=== PATIENT | male | born 1930 | race Caucasian/White ===

== ENCOUNTER 2017-01-26 09:38 | Emergency (ER) | payer MEDICARE, OTHER ==
[~2017-01-26] VITALS: Ht 182.9 cm; Wt 73.9 kg
--- NOTE | 2017-01-26 09:57 | EKG ---
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
--- NOTE | 2017-01-26 10:14 | ED.ADGEN ---
Past Medical History Past Medical History: High Cholesterol, Hypertension Adult General Chief Complaint Chief Complaint: WEIGHT LOSS HPI HPI Patient is a 86 year old male who presents with concern for weight loss. Pt reports this morning he took a shower and he got out and looked at his exposed body M year and noted that he looks much thinner than he had the last time he looked. Patient believes he's had a 20 pound weight loss in the last year, unintentional. He has been eating. He denies any nausea or vomiting, no chest pain or shortness of breath. He did have an episode of shortness of breath yesterday, family attributed it to the patient becoming very anxious when the primary caregiver was going to leave the house for an air and. The patient was able to calm within 5 minutes and the shortness of breath resolved. Family believes there is some anxiety contributing to the patient's wanting to come to the hospital, as his 12 weeks ago. Patient has a primary care appointment tomorrow with PCP Dr. Chowdary. Denies known cardiac disease, does not believe that he takes a beta ana lilia. He is on Coumadin, unknown reason. Records show a history of A. fib Review of Systems Review of Systems Constitutional: Denies fever or chills. [] Eyes: Denies change in visual acuity. [] HENT: Denies nasal congestion, reports phlegm in throat difficult to clear Respiratory: Reports mild cough, denies current shortness of breath. [] Cardiovascular: Denies chest pain or edema. [] GI: Denies abdominal pain, nausea, vomiting, bloody stools or diarrhea. [] : Denies dysuria. [] Musculoskeletal: Denies back pain or joint pain. [] Integument: Denies rash., Reports a left leg abscess that self drained Neurologic: Denies headache, focal weakness or sensory changes. [] Allergies Allergies Allergies Coded Allergies Type Severity Reaction Last Updated Verified No Known Drug Allergies 01/26/17 No Physical Exam Physical Exam Constitutional: Well developed, well nourished, no acute distress, non-toxic appearance. [Talks in full sentences HENT: Normocephalic, atraumatic, bilateral external ears normal, oropharynx moist, no oral exudates, nose normal, mucus in back of throat, mild erythema, no edema Eyes: enucleated left eye, R pupil reactive, EOMI, conjunctiva normal, no discharge. [] Neck: Normal range of motion, no tenderness, supple, no stridor. [] Cardiovascular:Heart rate bradycardic with regular rhythm Lungs & Thorax: Bilateral breath sounds clear to auscultation, no wheeze or crackles Abdomen: soft, no tenderness, no masses, no pulsatile masses. [] Skin: Warm, dry, abnormal R upper back mole, left lateral thigh small wound that has drained and nontender, no surrounding erythema. Back: No tenderness, no CVA tenderness. [] Extremities: No tenderness, no cyanosis, no clubbing, ROM intact, no edema. [] Neurologic: Alert and oriented X 3, normal motor function, normal sensory function, no focal deficits noted. [] Psychologic: anxious at times when clearing his phlegm] Current Patient Data Vital Signs Vital Signs Date Time Temp Pulse Resp B/P Pulse Ox O2 Delivery O2 Flow Rate FiO2 01/26/17 09:40 98.3 58 18 140/62 100 Room Air 98.3 Lab Values Laboratory Tests Test 01/26/17 09:50 White Blood Count 9.3x10^3/uL (4.0-11.0) Red Blood Count 5.58x10^6/uL (4.30-5.70) Hemoglobin 17.0g/dL (13.0-17.5) Hematocrit 49.6% (39.0-53.0) Mean Corpuscular Volume 89fL (79-100) Mean Corpuscular Hemoglobin 30pg (25-35) Mean Corpuscular Hemoglobin Concent 34g/dL (31-37) Red Cell Distribution Width 15.1% (11.5-14.5) H Platelet Count 179x10^3/uL (140-400) Neutrophils (%) (Auto) 68% (31-73) Lymphocytes (%) (Auto) 18% (24-48) L Monocytes (%) (Auto) 9% (0-9) Eosinophils (%) (Auto) 4% (0-3) H Basophils (%) (Auto) 1% (0-3) Neutrophils # (Auto) 6.3x10^3uL (1.8-7.7) Lymphocytes # (Auto) 1.7x10^3/uL (1.0-4.8) Monocytes # (Auto) 0.8x10^3/uL (0.0-1.1) Eosinophils # (Auto) 0.4x10^3/uL (0.0-0.7) Basophils # (Auto) 0.1x10^3/uL (0.0-0.2) Prothrombin Time 23.3SEC (11.7-14.0) H Prothrombin Time INR 2.2 (0.8-1.1) H Sodium Level 140mmol/L (136-145) Potassium Level 4.1mmol/L (3.5-5.1) Chloride Level 105mmol/L (98-107) Carbon Dioxide Level 26mmol/L (21-32) Anion Gap 9 (6-14) Blood Urea Nitrogen 22mg/dL (8-26) Creatinine 1.1mg/dL (0.7-1.3) Estimated GFR (Cockcroft-Gault) 63.6 BUN/Creatinine Ratio 20 (6-20) Glucose Level 94mg/dL (70-99) Calcium Level 9.3mg/dL (8.5-10.1) Total Bilirubin 1.0mg/dL (0.2-1.0) Aspartate Amino Transferase (AST) 16U/L (15-37) Alanine Aminotransferase (ALT) 21U/L (16-63) Alkaline Phosphatase 78U/L (46-116) Troponin I Quantitative < 0.017ng/mL (0.000-0.055) Total Protein 7.6g/dL (6.4-8.2) Albumin 3.7g/dL (3.4-5.0) Albumin/Globulin Ratio 0.9 (1.0-1.7) L Laboratory Tests 01/26/17 09:50 Laboratory Tests 01/26/17 09:50 EKG EKG 50 bpm, bradycardiac appears A. fib, no ST elevation appreciated, slight ST depression in lead V3 and V4 with T-wave inversion in V3 and aVF, interpreted by sc Radiology/Procedures Radiology/Procedures chest x-ray:Indication shortness of air. Bradycardia. Cough. PA and lateral views of the chest were obtained and are compared to an examination 11/26/2012. Heart size is at the upper limits of normal but unchanged. There is no congestive heart failure. Acute parenchymal infiltrate is not seen. Significant pleural fluid is not seen and there is no pneumothorax. A significant change compared to the previous exam is not seen. IMPRESSION: No acute finding apparent in the chest Course & Med Decision Making Course & Med Decision Making Pertinent Labs and Imaging studies reviewed. (See chart for details) Patient initially does not have any significant complaints. Patient does have possible weight loss, bradycardia, abnormal mold. Patient has follow-up with primary care physician the following day. Evaluation the ER did not show any acute abnormalities. Plan to discharge the patient, and he started complaining of the phlegm that he get stuck in his throat. His O2 sats were 99-100% the entire time he was in the ER. I suggested he performed nasal rinses at home, keep follow-up with primary care physician. Caregiver agreed and plans to take him to his appointment tomorrow. I also talked with Dr. Chowdary regarding this patient. Diagnosis: viral sinusitis, weight loss, bradycardia Dragon Disclaimer Dragon Disclaimer This electronic medical record was generated, in whole or in part, using a voice recognition dictation system. SHAMIR TURNER MD January 26, 2017 10:14
[2017-01-26 10:23] LABS: BASO # 0.1 x10^3/uL (0.0-0.2); BASO % 1 % (0-3); EOS % 4 % (0-3); HEMATOCRIT 49.6 % (39.0-53.0); LYMPH # 1.7 x10^3/uL (1.0-4.8); LYMPH % 18 % (24-48); MEAN CORPUSCULAR HEMOGLOBIN 30 pg (25-35); MEAN CORPUSCULAR HGB CONC 34 g/dL (31-37); MEAN CORPUSCULAR VOLUME 89 fL (79-100); MONO % 9 % (0-9); NEUT % 68 % (31-73); PLATELET COUNT 179 x10^3/uL (140-400); RED BLOOD COUNT 5.58 x10^6/uL (4.30-5.70); RED CELL DISTRIBUTION WIDTH 15.1 % (11.5-14.5); WHITE BLOOD COUNT 9.3 x10^3/uL (4.0-11.0)
[2017-01-26 10:31] LABS: CALCIUM 9.3 mg/dL (8.5-10.1); CREATININE 1.1 mg/dL (0.7-1.3); GFR 63.6; POTASSIUM 4.1 mmol/L (3.5-5.1)
[2017-01-26 10:37] LABS: ALBUMIN 3.7 g/dL (3.4-5.0); ALBUMIN/GLOBULIN RATIO 0.9 (1.0-1.7); TOTAL PROTEIN 7.6 g/dL (6.4-8.2)
--- NOTE | 2017-01-26 10:40 | RAD ---
Indication shortness of air. Bradycardia. Cough. PA and lateral views of the chest were obtained and are compared to an examination 11/26/2012. Heart size is at the upper limits of normal but unchanged. There is no congestive heart failure. Acute parenchymal infiltrate is not seen. Significant pleural fluid is not seen and there is no pneumothorax. A significant change compared to the previous exam is not seen. IMPRESSION: No acute finding apparent in the chest
[2017-01-26 10:41] LABS: INR 2.2 (0.8-1.1); PROTHROMBIN TIME PATIENT 23.3 SEC (11.7-14.0)
[2017-01-26 11:30] VITALS: BP 139/70
== END 2017-01-26 11:30 | disposition home or self-care (01) ==
LOC: ER 09:38
DX: J32.8 Other chronic sinusitis (principal); B97.89 Other viral agents as the cause of diseases classified elsewhere; R63.4 Abnormal weight loss; R00.1 Bradycardia, unspecified; I10 Essential (primary) hypertension; E78.00 Pure hypercholesterolemia, unspecified; I48.91 Unspecified atrial fibrillation; Z79.01 Long term (current) use of anticoagulants
CPT/HCPCS: 36415; 71020; 80053; 84484; 85027; 85610; 93005; 99285-25

== ENCOUNTER 2017-02-13 13:58 | Emergency (ER) | payer MEDICARE, OTHER ==
[~2017-02-13] VITALS: Ht 180.3 cm; Wt 73.9 kg
[2017-02-13 14:17] LABS: BILIRUBIN,URINE NEGATIVE (NEG); GLUCOSE,URINE NEGATIVE (NEG); NITRITE,URINE NEGATIVE (NEG); PH,URINE 7.5; PROTEIN,URINE NEGATIVE (NEG-TRACE)
[2017-02-13] MEDS ORDERED: SIMV10TA3 PO (14:19)
[2017-02-13] MEDS ORDERED: ALLO300T PO (14:19)
[2017-02-13] MEDS ORDERED: WARF5TAB7 PO (14:19)
[2017-02-13] MEDS ORDERED: LISI10TA2 PO (14:19)
[2017-02-13] MEDS ORDERED: LEVO75TA5 PO (14:20)
[2017-02-13 14:28] LABS: BACTERIA,URINE 0 /HPF (0-FEW); RBC,URINE OCC /HPF (0-2)
[2017-02-13 14:56] LABS: BASO # 0.1 x10^3/uL (0.0-0.2); BASO % 1 % (0-3); EOS % 2 % (0-3); HEMATOCRIT 53.8 % (39.0-53.0); HEMOGLOBIN 17.7 g/dL (13.0-17.5); LYMPH % 10 % (24-48); MEAN CORPUSCULAR HEMOGLOBIN 31 pg (25-35); MEAN CORPUSCULAR HGB CONC 33 g/dL (31-37); MEAN CORPUSCULAR VOLUME 93 fL (79-100); MONO % 8 % (0-9); NEUT % 80 % (31-73); PLATELET COUNT 140 x10^3/uL (140-400); RED BLOOD COUNT 5.79 x10^6/uL (4.30-5.70); RED CELL DISTRIBUTION WIDTH 16.6 % (11.5-14.5); WHITE BLOOD COUNT 10.9 x10^3/uL (4.0-11.0)
[2017-02-13] MEDS ORDERED: TAMS0.4C97 PO (15:02)
[2017-02-13] MEDS ORDERED: LEVO500T38 PO (15:02)
--- NOTE | 2017-02-13 15:03 | PHYS DOC ---
Past Medical History Past Medical History: High Cholesterol, Hypertension, Hypothyroid Additional Past Medical Histor: GOUT Past Surgical History: Hip Replacement Alcohol Use: None Drug Use: None Adult General Chief Complaint Chief Complaint: URINARY FREQUENCY HPI HPI Patient is a 86 year old male presenting to the emergency department for evaluation of more frequent urination since yesterday. He says that he is urinating every hour and that sometimes it is very difficult to start his stream in that he is urinating less. He says it is somewhat painful to urinate with some discomfort in his suprapubic area. He denies any fevers chills nausea vomiting or other systemic symptoms. He is in no obvious distress with normal vital signs except his known bradycardia. Review of Systems Review of Systems Constitutional: Denies fever or chills [] Cardiovascular: No additional information not addressed in HPI [] GI: Denies abdominal pain, nausea, vomiting, bloody stools or diarrhea [] : + dysuria. No hematuria [] Musculoskeletal: Denies back pain or joint pain [] Allergies Allergies Allergies Coded Allergies Type Severity Reaction Last Updated Verified No Known Drug Allergies 01/26/17 No Physical Exam Physical Exam Constitutional: Well developed, well nourished, no acute distress, non-toxic appearance. [] Cardiovascular:Heart rate bradycardic with regular rhythm, no murmur [] Lungs & Thorax: Bilateral breath sounds clear to auscultation [] Abdomen: Bowel sounds normal, soft, no tenderness, no masses, no pulsatile masses. [] Back: No tenderness, no CVA tenderness. [] Current Patient Data Vital Signs Vital Signs Date Time Temp Pulse Resp B/P (MAP) Pulse Ox O2 Delivery O2 Flow Rate FiO2 02/13/17 14:07 98.0 70 16 166/69 (101) 97 Room Air 98.0 Lab Values Laboratory Tests Test 02/13/17 14:06 02/13/17 14:45 Urine Collection Type Unknown Urine Color Yellow Urine Clarity Clear Urine pH 7.5 Urine Specific [place] 1.010 Urine Protein Negative mg/dL (NEG-TRACE) Urine Glucose (UA) Negative mg/dL (NEG) Urine Ketones (Stick) Negative mg/dL (NEG) Urine Blood Negative (NEG) Urine Nitrite Negative (NEG) Urine Bilirubin Negative (NEG) Urine Urobilinogen Dipstick 1.0 mg/dL (0.2 mg/dL) Urine Leukocyte Esterase Negative (NEG) Urine RBC Occ /HPF (0-2) Urine WBC 1-4 /HPF (0-4) Urine Bacteria 0 /HPF (0-FEW) White Blood Count 10.9 x10^3/uL (4.0-11.0) Red Blood Count 5.79 x10^6/uL (4.30-5.70) H Hemoglobin 17.7 g/dL (13.0-17.5) H Hematocrit 53.8 % (39.0-53.0) H Mean Corpuscular Volume 93 fL (79-100) Mean Corpuscular Hemoglobin 31 pg (25-35) Mean Corpuscular Hemoglobin Concent 33 g/dL (31-37) Red Cell Distribution Width 16.6 % (11.5-14.5) H Platelet Count 140 x10^3/uL (140-400) Neutrophils (%) (Auto) 80 % (31-73) H Lymphocytes (%) (Auto) 10 % (24-48) L Monocytes (%) (Auto) 8 % (0-9) Eosinophils (%) (Auto) 2 % (0-3) Basophils (%) (Auto) 1 % (0-3) Neutrophils # (Auto) 8.7 x10^3uL (1.8-7.7) H Lymphocytes # (Auto) 1.0 x10^3/uL (1.0-4.8) Monocytes # (Auto) 0.9 x10^3/uL (0.0-1.1) Eosinophils # (Auto) 0.2 x10^3/uL (0.0-0.7) Basophils # (Auto) 0.1 x10^3/uL (0.0-0.2) Laboratory Tests 02/13/17 14:45 EKG EKG [] Radiology/Procedures Radiology/Procedures [] Course & Med Decision Making Course & Med Decision Making Patient just finished prednisone for bronchitis. His labs are mostly unremarkable. His urine shows a few white blood cells but no bacteria. I suspect that he either has BPH or a prostatitis. Given he is symptomatic and presenting to the emergency department for this complaint I will go ahead and treat him for a prostatitis and have him follow with the urologist as an outpatient. Patient will be placed on Levaquin for 1 week in addition to Flomax trialed for one week. He was told to follow later this week and come back to the ER sooner with worsening pain fevers vomiting or other general concerns. Patient aware and agreeable with plan for discharge and verbalized understanding of the need for short-term urology follow-up and strict ER return precautions discussed as above. Of note he was told to stand up slowly while Flomax and to have his INR checked later this week as he will be on an antibiotic. Dragon Disclaimer Dragon Disclaimer This electronic medical record was generated, in whole or in part, using a voice recognition dictation system. Departure Departure Impression: Primary Impression: Urinary frequency Disposition: HOME, SELF-CARE Condition: GOOD Referrals: CAESAR GRACIA MD (PCP) KLEBER SEGURA MD Patient Instructions: Urinary Frequency Additional Instructions: FOLLOW WITH THE UROLOGIST. Stand up slowly while you are on this medication. Scripts Tamsulosin Hcl (FLOMAX) 0.4 Mg Cap.er.24h 1 CAP PO DAILY, #10 CAP 11 Refills Prov: ESDRAS NAZARIO DO 02/13/17 Levofloxacin (LEVAQUIN) 500 Mg Tablet 1 TAB PO DAILY, #7 TAB Prov: ESDRAS NAZARIO DO 02/13/17 ESDRAS NAZARIO DO February 13, 2017 15:03
[2017-02-13 15:07] VITALS: BP 145/65
[2017-02-15 09:16] LABS: POTASSIUM ISTAT 4.4 mmol/L (3.5-5.0)
== END 2017-02-13 15:31 | disposition home or self-care (01) ==
LOC: ER 14:26
DX: R35.0 Frequency of micturition (principal); E78.00 Pure hypercholesterolemia, unspecified; E03.9 Hypothyroidism, unspecified; I10 Essential (primary) hypertension; M10.9 Gout, unspecified
CPT/HCPCS: 36415; 80047; 81001; 85027; 99284

== ENCOUNTER → 2017-03-09 | Outpatient (CLI) | payer OTHER ==
[2017-02-13 15:07] VITALS: BP 145/65
[~2017-03-09] MED LIST: ALLO300T PO; BARIUM SULFATE 340 GM SUSPENSION. PO ONE; BARIUM SULFATE 60% 355 ML SUSP PO ONE; LEVO500T59 PO; LEVO75TA5 PO; LISI10TA2 PO; SIMETHICONE/SOD BICARB/CITRIC ACID PACKET. PO ONE; SIMV10TA3 PO; TAMS0.4C97 PO; WARF5TAB7 PO
--- NOTE | 2017-03-09 11:30 | RAD ---
EXAM: Single contrast barium esophagram. HISTORY: Dysphagia. Belching. Abnormal swallowing sensation. COMPARISON: None. FINDINGS: Barium contrast material was administered orally and followed in its course through the pharynx, esophagus and gastroesophageal junction with fluoroscopy. 7 fluoroscopic images were obtained. Fluoroscopy time 2.8 minutes. A limited study was performed given the patient's difficulty standing and following instructions. No aspiration was visualized currently, but there is a large amount of pharyngeal residue with thick liquids. The esophagus is grossly normal in morphology. Sensitivity for mucosal lesions is limited, but none are clearly seen. A 12.5 mm barium pill was administered which passed promptly. The gastroesophageal junction is in its expected position. It opened promptly. There is diffuse gaseous distention of the colon throughout the visualized upper abdomen. IMPRESSION: 1. Limited study as above. 2. Extensive pharyngeal residue. No aspiration was served. A modified swallow study with speech pathology could be considered if there is concern for oropharyngeal dysphagia. 3. No strictures identified. Limited mucosal assessment of the esophagus. Endoscopy could further evaluate if there is persistent concern. 4. Diffuse gaseous distention of the colon. Correlate clinically.
== END | disposition home or self-care (01) ==
LOC: RAD 09:28
PROVIDERS: ATTEND Otolaryngology
DX: R13.10 Dysphagia, unspecified (principal); K63.89 Other specified diseases of intestine
CPT/HCPCS: 74220